=== PATIENT | female | born 1950 | race Caucasian/White ===

== ENCOUNTER → 2018-10-15 | Outpatient (CLI) | payer OTHER, MEDICARE | LOC: BMCIMAGING 08:24 | PROVIDERS: ATTEND Nurse Practitioner Adult Health | DX: Z12.31 Encounter for screening mammogram for malignant neoplasm of breast (principal); Z80.3 Family history of malignant neoplasm of breast ==

== ENCOUNTER → 2018-10-25 | Outpatient (CLI) | payer OTHER, MEDICARE ==
[~2018-10-25] MED LIST: IOPAMIDOL (ISOVUE-300) 100 ML BTL ONE
== END ==
LOC: FIMAGING 08:23
PROVIDERS: ATTEND Nurse Practitioner Adult Health
DX: R63.4 Abnormal weight loss (principal); K59.00 Constipation, unspecified
CPT/HCPCS: 74177; Q9967